=== PATIENT | female | born 1995 | race Caucasian/White ===

== ENCOUNTER 2019-07-29 23:02 | Emergency (ER) | payer BC, OTHER ==
[2019-07-29 23:07] VITALS: BP 116/75; PULSE 76; RESP 18; TEMP 98
[2019-07-29] MEDS ORDERED: KETOTIFEN 0.025% OPHTH DROPS 5 ML BTL BOTH EYES STA (23:25)
[2019-07-29] MEDS ORDERED: diphenhydrAMINE 50 MG CAP PO STA (23:25)
--- NOTE | 2019-07-29 23:27 | ED ---
Eye Problem HPI - General Chief complaint: Eye Problems Stated complaint: Eye Problems Time Seen by Provider: 07/29/19 23:07 Source: patient Mode of arrival: ambulatory Limitations: no limitations - History of Present Illness Initial comments: 24-year-old female patient presents to the emergency department today for evaluation of bilateral eye swelling, discomfort, and drainage. States that she has had symptoms present for the last week. Patient states that she was given prescription for antibiotic drops which she used for a couple days but it seemed to make her symptoms worse. Patient states she was reevaluated was diagnosed with ALLERGIC conjunctivitis. States she has been taking Zyrtec but doesn't seem to be helping. She denies any blurred or double vision with this. States symptoms started after she had her friends cats at her home for a few days. States one sneezed in her face. She denies any fever or chills. Denies any significant pain to the eyes. Denies headache. Patient denies any recent rash, shortness breath, chest pain, abdominal pain, nausea, vomiting, diarrhea, constipation, back pain, numbness, tingling, dizziness, weakness, hematuria, dysuria, urinary urgency, urinary frequency, headache, visual changes, or any other complaints. - Related Data Home Medications Medication Instructions Recorded Confirmed No Known Home Medications 07/29/19 07/29/19 Allergies Allergy/AdvReac Type Severity Reaction Status Date / Time No Known Allergies Allergy Unverified 07/29/19 23:15 Review of Systems ROS Statement: Those systems with pertinent positive or pertinent negative responses have been documented in the HPI. ROS Other: All systems not noted in ROS Statement are negative. Past Medical History Past Medical History: No Reported History History of Any Multi-Drug Resistant Organisms: None Reported Past Surgical History: Section Past Psychological History: No Psychological Hx Reported Smoking Status: Current every day smoker Past Alcohol Use History: Occasional Past Drug Use History: None Reported General Exam Limitations: no limitations General appearance: alert, in no apparent distress, other (This is a well- developed, well-nourished adult female patient in no acute distress. Vital signs upon presentation are temperature 98.0F, pulse 76, respirations 18, blood pressure 116/75, pulse ox 100% on room air.) Eye exam: Present: PERRL, EOMI, conjunctival injection (Bilateral), periorbital swelling (Bilateral), other (Evidence of chemosis. Clear drainage.). Absent: normal appearance, scleral icterus Respiratory exam: Present: normal lung sounds bilaterally. Absent: respiratory distress, wheezes, rales, rhonchi, stridor Cardiovascular Exam: Present: regular rate, normal rhythm, normal heart sounds. Absent: systolic murmur, diastolic murmur, rubs, gallop, clicks Neurological exam: Present: alert, oriented X3, CN II-XII intact Psychiatric exam: Present: normal affect, normal mood Skin exam: Present: warm, dry, intact, normal color. Absent: rash Course Vital Signs 07/29/19 23:03 Temperature 98.0 F Pulse Rate 76 Respiratory 18 Rate Blood Pressure 116/75 O2 Sat by Pulse 100 Oximetry Medical Decision Making - Medical Decision Making 24-year-old female patient percents to the emergency department today for evaluation of bilateral eye swelling, drainage, and discomfort. Physical examination did reveal bilateral periorbital edema, clear drainage, chemosis, and conjunctival injection. Symptoms are consistent with ALLERGIC conjunctivitis most likely from exposure to cats. She'll be discharged with instructions to take Benadryl every 6 hours. She'll be given Zaditor drops to instill twice daily. She is instructed to continue taking Zyrtec. She is instructed to follow-up with the phlebotomist medical lab assistant for recheck in 1-2 days. Return parameters were discussed in detail. She verbalizes understanding and agrees with this plan. Disposition Clinical Impression: Allergic conjunctivitis Disposition: HOME SELF-CARE Condition: Good Instructions (If sedation given, give patient instructions): Ketotifen (Into the eye), Conjunctivitis (ED) Additional Instructions: Take Benadryl 25-50 mg every 6 hours. Use eye drops 1 drop per eye twice daily. Follow-up with ophthalmology for recheck tomorrow. Return to the emergency department immediately for any new, worsening, or concerning symptoms. Is patient prescribed a controlled substance at d/c from ED?: No Referrals: None,Stated [Primary Care Provider] - 1-2 days Time of Disposition: 23:27
== END 2019-07-30 00:13 | disposition home or self-care (01) ==
LOC: EC 23:02
DX: H10.13 Acute atopic conjunctivitis, bilateral (principal); F17.200 Nicotine dependence, unspecified, uncomplicated
CPT/HCPCS: 99283

== ENCOUNTER 2019-08-04 12:38 | Emergency (ER) | payer BC, OTHER ==
[2019-08-04 13:00] VITALS: BP 105/67; PULSE 79; RESP 16; TEMP 98.4
--- NOTE | 2019-08-04 13:12 | ED ---
Eye Problem HPI - General Chief complaint: Eye Problems Stated complaint: eye irritation Time Seen by Provider: 08/04/19 13:02 Source: patient Mode of arrival: ambulatory Limitations: no limitations - History of Present Illness Initial comments: 24yo female presenting today for chief complaint of bilateral eye irritation. She states her son has had pinkeye for the past 3 days. She states that she was told that she'll ALLERGIC conjunctivitis. Patient states that she has not been on antibiotics however her son has purulent eye drainage. Patient states she has watery eyes hasn't noticed very much drainage but has had crusting. Patient states he feels very irritated no eye pain or. Extra fiber with her swelling of the surrounding soft tissues of the eyes. Patient denies any vision loss or diplopia. Denies any headache or nausea. Remaining review system negative. Upon arrival patient appears well no signs of acute distress. Patient states she has vaccinated and has been afebrile. - Related Data Home Medications Medication Instructions Recorded Confirmed Ofloxacin 0.3% Ophth Soln [Ocuflox 1 drop BOTH EYES TID 08/04/19 08/04/19 Ophth Soln] Previous Rx's Medication Instructions Recorded Erythromycin Ophth Oint [Romycin 1 applic BOTH EYES QID 5 Days #1 08/04/19 Ophth Oint] tube Allergies Allergy/AdvReac Type Severity Reaction Status Date / Time No Known Allergies Allergy Verified 08/04/19 13:55 Review of Systems ROS Statement: Those systems with pertinent positive or pertinent negative responses have been documented in the HPI. ROS Other: All systems not noted in ROS Statement are negative. Past Medical History Past Medical History: No Reported History History of Any Multi-Drug Resistant Organisms: None Reported Past Surgical History: Section Past Psychological History: No Psychological Hx Reported Smoking Status: Current every day smoker Past Alcohol Use History: Occasional Past Drug Use History: None Reported General Exam - General Exam Comments Initial Comments: General: The patient is awake and alert, in no distress, and does not appear acutely ill. Eye: +3 mm pupils are equal, round and reactive to light, extra-ocular movements are intact. No nystagmus. conjunctival injection +1 bilaterally. No signs of icterus. Skin exam no areas of uptake. Ears, nose, mouth and throat: There are moist mucous membranes and no oral lesions. . Cardiovascular: There is a regular rate and rhythm. No murmur, rub or gallop is appreciated. Respiratory: Lungs are clear to auscultation, respirations are non-labored, breath sounds are equal. No wheezes, stridor, rales, or rhonchi. Musculoskeletal: Normal ROM, no tenderness. Strength 5/5. Sensation intact. Radial pulses equal bilaterally 2+. Neurological: A&O x 3. CN II-XII intact grossly, There are no obvious motor or sensory deficits. Coordination appears grossly intact. Speech is normal. Skin: Skin is warm and dry and no rashes or lesions are noted. Psychiatric: Cooperative, appropriate mood & affect, normal judgment. Limitations: no limitations Course Vital Signs 08/04/19 12:58 Temperature 98.4 F Pulse Rate 79 Respiratory 16 Rate Blood Pressure 105/67 O2 Sat by Pulse 98 Oximetry Medical Decision Making - Medical Decision Making nontoxic pleasant 24yo female presents today for chief complaint of bilateral eye irritation. Positive sick contacts. Patient has conjunctival injection upon physical examination. Patient has no areas of uptake of fluorescein examination. Patient appears well nontoxic. At this time will treat patient with erythromycin ointment. Patient saw primary care provider. Return parameters discussed the patient was discharged appearing well. She verbalized understanding of return parameters as well as importance of follow-up. Disposition Clinical Impression: Conjunctivitis Disposition: HOME SELF-CARE Condition: Good Instructions (If sedation given, give patient instructions): Conjunctivitis (ED) Additional Instructions: Please use medication as discussed. Please follow-up with family doctor in the next 2 days.. Please return to emergency room if the symptoms increase or worsen or for any other concerns, pain with eye movement, fevers, eye swelling, worsening symptoms . Prescriptions: Erythromycin Ophth Oint [Romycin Ophth Oint] 1 applic BOTH EYES QID 5 Days #1 tube Is patient prescribed a controlled substance at d/c from ED?: No Referrals: None,Stated [Primary Care Provider] - 1-2 days Time of Disposition: 13:41
== END 2019-08-04 14:17 | disposition home or self-care (01) ==
LOC: EC 12:38
DX: H10.9 Unspecified conjunctivitis (principal); F17.200 Nicotine dependence, unspecified, uncomplicated
CPT/HCPCS: 99283